=== PATIENT | female | born 1970 | race Caucasian/White ===

== ENCOUNTER 2018-10-15 13:49 | Outpatient (CLI) | payer BC, SELFPAY ==
--- NOTE | 2018-10-15 13:30 | DI.RAD_ITS ---
SYMPTOM/DIAGNOSIS: INJURY LEFT THUMB: Three views were obtained. No fracture is seen.
== END 2018-10-15 14:09 ==
PROVIDERS: PCP Student in an Organized Health Care Education/Training Program; Visit Provider Student in an Organized Health Care Education/Training Program
DX: S69.92XA Unspecified injury of left wrist, hand and finger(s), initial encounter (principal); M79.645 Pain in left finger(s)
CPT/HCPCS: 73140

== ENCOUNTER 2019-02-06 10:56 | Outpatient (CLI) | payer BC, SELFPAY ==
[2019-02-06 13:18] LABS: Calculated LDL 91 mg/dL; Cholesterol 189 mg/dL (50-200); HDL Cholesterol 87 mg/dL (40-60); Triglyceride 55 mg/dL (30-150)
[2019-02-06 13:33] LABS: Hemoglobin A1C 5.2 % (4.5-6.2)
== END 2019-02-06 11:16 ==
PROVIDERS: PCP Nurse Practitioner; Visit Provider Nurse Practitioner
DX: Z13.1 Encounter for screening for diabetes mellitus (principal); Z13.6 Encounter for screening for cardiovascular disorders
CPT/HCPCS: 36415; 80061; 83036

== ENCOUNTER 2019-04-24 00:34 | Outpatient (CLI) | payer BC, SELFPAY ==
--- NOTE | 2019-04-24 14:17 | DI.US_ITS ---
EXAM: US PELVIS AND TRANSVAGINAL CLINICAL HISTORY: OVARIAN PAIN/CYSTS/HERNIA R10.9 ABDOMINAL PAIN, R52 PAIN. TECHNIQUE: Ultrasound of the pelvic, both abdmonal and tranvaginal was performed using standard prot ocol. COMPARISON: No exams were available for comparison FINDINGS: KIDNEYS: Kidneys are symmetric in size. No evidence of renal calculi. No evidence of hydronephrosis. No renal mass or cyst identified. UTERUS: Position: Anteverted. Size: 8.2 x 4.0 x 4.4 cm Endometrium: 0.5 cm. Normal for patient's menstrual status. Myometrium: Unremarkable. Cervix: Cervical nabothian cysts. OVARIES: Right: 4.1 x 3.1 x 3.2 cm Cyst or mass: There is a 2.9 x 2.1 x 2.2 cm simple cyst. There is a 3 x 1.2 x 2.7 cm well-circumscri bed lesion. There is no internal vascularity. There is a 2nd lesion measuring 1.2 x 0.6 x 1.1 cm. It is well-circumscribed and hypoechoic. Left: 2.2 x 0.9 x 1.4 cm. This was only visualized transabdominally. Cyst or mass: None. CUL-DE-SAC: Free fluid: None. IMPRESSION: 1. Normal sonographic appearance of the kidneys. 2. Normal-appearing uterus with endometrial stripe within normal limits. 3. Two hypoechoic lesions seen on the right ovary as described above. These may represent hemorrhagi c cysts. A follow-up pelvic ultrasound in 6 to 8 weeks is recommended for re-evaluation.
--- NOTE | 2019-04-24 14:26 | DI.US_ITS ---
EXAM: US HERNIA CLINICAL HISTORY: OVARIAN PAIN/ CYSTS/HERNIA R10.9 ABDOMINAL PAIN TECHNIQUE: Ultrasound performed using standard protocol. COMPARISON: No previous for comparison. FINDINGS: Right lower quadrant was evaluated sonographically. No sonographic evidence of an abdominal wall her maurilio is noted. IMPRESSION: No sonographic evidence of a hernia.
[2019-04-26 12:54] LABS: IgA 182 mg/dL (85-499); Tissue Transglutaminase IgA <1.2 U/mL (<4.0)
== END 2019-04-24 00:54 ==
PROVIDERS: PCP Nurse Practitioner; Visit Provider Nurse Practitioner
DX: R10.9 Unspecified abdominal pain (principal); N94.89 Other specified conditions associated with female genital organs and menstrual cycle; N83.291 Other ovarian cyst, right side
CPT/HCPCS: 36415; 76857; 82784; 83516; 76830; 76856

== ENCOUNTER 2019-06-05 01:37 | Outpatient (CLI) | payer BC, SELFPAY ==
--- NOTE | 2019-06-05 12:45 | DI.US_ITS ---
EXAM: US PELVIS AND TRANSVAGINAL CLINICAL HISTORY: ABDOMINAL PAIN, FOLLOW UP TO PREVIOUS ULTRASOUND, R10.9 TECHNIQUE: Ultrasound performed using standard protocol. Transabdominal and transvaginal studies w ere performed. COMPARISON: US PELVIS TRANSVAGINAL from 04/24/2019 US HERNIA from 04/24/2019 FINDINGS: The uterus measures 7.3 x 3.8 x 5.0 cm. Endometrial stripe measures 5 millimeters in thickness. The left ovary was not able to be visualized on the current exam. The right ovary shows a 2.4 at 2.2 x 1 .4 centimeter cyst with low-level echoes. The previous exam showed 3 lesions. Findings could represen t a new cyst, could represent partial involution of 1 of the 2 larger cysts seen on the previous exam . There are no suspicious features. The bladder and kidneys are unremarkable. IMPRESSION: 2.4 centimeter cyst with low-level echoes on the right ovary. Two of the previously noted lesions camarena ve since resolved. No suspicious features. DATA REPOSITORY:
== END 2019-06-05 01:57 ==
PROVIDERS: PCP Nurse Practitioner; Visit Provider Nurse Practitioner
DX: R10.9 Unspecified abdominal pain (principal); N83.291 Other ovarian cyst, right side
CPT/HCPCS: 76830; 76856

== ENCOUNTER 2020-09-14 02:35 | Outpatient (CLI) | payer BC, SELFPAY ==
--- NOTE | 2020-09-14 | DI.US_ITS ---
Exam(s) US BREAST LT COMPLETE US BREAST RT COMPLETE MG MAMMO SCREENING EXAM: MG MAMMO SCREENING and bilateral U/S breast complete CLINICAL HISTORY: SCREENING,. TECHNIQUE: Craniocaudal and mediolateral oblique Full Field Digital Mammography views with Computer Aided Diagnosis followed by Tomosynthesis and bilateral breast ultrasound. COMPARISON: Comparison with prior examinations FINDINGS: Mammography/Tomosynthesis: Masses/Architectural Distortion: None seen. Microcalcifictions: No suspicious pleomorphic-type are seen. Skin Thickening/Nipple Retraction: None. Bilateral breast US: Echotexture: Normal appearance of the glandular tissue. Shadowing: No suspicious foci. Cyst: None. Solid lesions: None seen. Ductal dilation: None. Bilateral axilla: Unremarkable. IMPRESSION: 1. No evidence of malignancy is noted. 2. Unless there is more urgent need, follow-up screening mammography is recommended, as per [employer] guidelines. 3. The findings were discussed with the patient on the date of the examination. BI-RADS Category 1 - Negative Breast Density - Category B - Scattered areas of fibroglandular density Breast density Category C or D implies that the patient has dense breast tissue. Dense breast tissue can make it harder to find cancer on a mammogram. Dense breast tissue is also associated with an incr eased risk of breast cancer. This information about the result of the mammogram report was provided to the patient to raise their awareness. Use this report when you speak with the patient about their risks for breast cancer, which includes their family history. At that time, you may recommend additional screening tests (Ultrasoun d or MRI) as these tests may add significant information. A negative radiographic report should not delay biopsy if a dominant or clinically suspicious mass is present. Up to ten percent of cancers are not identified on mammography. A negative report may reinforce clinical impression. Adenosis and dense breasts may obscure an underlying neoplasm. False positive reports average 6 to 10%. Patient will receive a letter notifying them of these results.
== END 2020-09-14 02:55 ==
PROVIDERS: PCP Nurse Practitioner; Visit Provider Obstetrics & Gynecology Gynecology
DX: Z12.31 Encounter for screening mammogram for malignant neoplasm of breast (principal)
CPT/HCPCS: 76642; 77063; 77067

== ENCOUNTER 2021-03-01 02:47 | Outpatient (CLI) | payer BC, SELFPAY ==
[2021-03-01 13:38] LABS: Source Nasal/Nares
[2021-03-01 17:39] LABS: COVID-19 PCR Negative (Negative)
== END 2021-03-01 02:48 | disposition home or self-care (01) ==
LOC: LBO 02:47
PROVIDERS: PCP Family Medicine; Visit Provider Surgery
DX: Z20.822 Contact with and (suspected) exposure to COVID-19 (principal)
CPT/HCPCS: 87635

== ENCOUNTER 2021-03-03 08:55 | Day surgery (SDC) | payer BC, SELFPAY ==
--- NOTE | 2021-03-03 06:55 | W.COLOREPORT ---
Colonoscopy Report Date of procedure: 03/03/21 Pre-op diagnosis general: Colon Cancer Screening Post-op diagnosis procedure note: same Procedure: Colonoscopy Surgeon: Margret Villagran Anesthesia Type: General:No Airway (Mike Holm CRNA) Estimated blood loss (mL): 0 Pathology: none sent Complications: None Disposition: same day Indications: The patient is here for Colonoscopy pre-op. She has no family history of colon cancer. She has not had any bowel habit changes. -Discussed colonoscopy bowel prep as well as the procedure. Discussed possible complications of the procedure to include bleeding, pain, perforation, missed small lesion/polyp, sore throat, aspiration and adverse reaction to the medications. Questions were answered to patient?s satisfaction. No guarantees were implied or given. Patient education provided on H Pylori. She does admit or describe having any symptoms that would suggest H Pylori infection. Recommend she follows up with her PCP regarding less invasive forms of testing such as the stool test or urea breath test. She was encouraged to hold her herbal supplements prior to her procedure. Prep: Miralax/Dulcolax Procedure Start Time: 09:59 Procedure End Time: 10:14 Retraction Time: 7 minutes Findings: normal colonoscopy Procedure Description: After informed consent was obtained the patient was taken to the procedure room and placed in a left decubitous position. Monitors were applied and a time out was done. The patients name, date of , procedure, allergies to medications and metal in their body was reviewed. The patient was then sedated. Once sedated and comfortable a rectal exam was done. External exam was normal. Internal exam revealed a normal sphincter tone and no palpable masses. The scope was then introduced and retro-flexed. No internal hemorrhoids, polyps or masses were identified on retro-flexion. The scope was then advanced to the cecum without difficulty. The ileocecal vlave and appendiceal orifice were identified. The prep was adequate. The scope was then slowly retracted over 7 minutes back into the rectum. There were no polyps and no diverticulosis noted. The scope was removed and the patient was woken up and taken back to Same day surgery in stable condition. The patient tolerated the procedure well and there were no immediate complications. Follow up: The patient should follow up in 10 years unless they develop changes in bowel habits or other new gastrointestinal complaints.
--- NOTE | 2021-03-03 06:55 | W.PM.DSUDISC ---
Discharge Plan Disposition Patient Disposition: HOME Condition: Good Discharge Details Reason For Visit: Screening Attending Provider: Margret Villagran Primary Care Provider: Maria Elena Murrieta Home Meds and New Rx's Prescriptions: Continued Galzin 25 mg (zinc) capsule 25 mg PO DAILY RF: 0 ascorbic acid (vitamin C) 500 mg capsule 500 mg PO QDAY RF: 0 zasypen-oxrv-odapy-oreg-capryl 100 mg-150 mg- 50 mg-150 mg capsule 1 cap PO DAILY RF: 0 Discontinued polyethylene glycol 3350 17 gram/dose powder 238 g PO ONCE Qty: 238 RF: 0 bisacodyl [Dulcolax (bisacodyl)] 5 mg tablet,delayed release (DR/EC) 5 mg PO ONCE Qty: 4 RF: 0 Discharge Instructions Additional Instructions: Findings: Normal colonoscopy Follow up: 10 years Please call if you develop: fevers >101.5 Nausea or Vomiting Abdominal pain that is not transient Rectal bleeding that is more then a tbsp A hard abdomen and inability to pass gas DAY SURGERY UNIT POST ENDOSCOPY INSTRUCTIONS Instructions for everyone who is given Anesthesia: For your safety, please do the following for the next 24 Hours: a. Do not drive or operate dangerous equipment b. Do not drink alcohol beverages or use any recreational drugs for the first 24 hours or while taking pain medications. The medications in your body may have a reaction that can be dangerous. c. Do not make any important decisions or sign any important papers 1. Generally there are no restrictions on your activity after a day or so has gone by, but you may feel a bit fatigued for a few days. 2. After you arrive home you may have a light meal and return to a normal diet as you can tolerate it without feeling sick to your stomach. 3. After surgery, you may feel pain or discomfort. This should be only transient, but if it persists please contact your doctor. 4. If there are any questions regarding the findings of your procedure, please feel free to contact your doctor. 6. If you are unable to contact your doctor with a problem, contact the hospital at [phone]. 7. Continue all your regular medications unless directed otherwise. I understand the above instructions and have no questions. Signature of Patient or Responsible Adult Escort Date/Time Name of Responsible Adult Escort Signature of Nurse Date/Time Activity:: Activity as Tolerated Diet:: As Tolerated Discharge Orders Discharge Orders: Discharge Order (Routine); Ordered 03/03/21 Ordered By: Margret Villagran
[2021-03-03 09:29] VITALS: BP 154/102; PULSE 83; RESP 16; TEMP 36.3; O2SAT 99
--- NOTE | 2021-03-03 09:33 | W.ANESPRE ---
General Info Date of Service Date Performed: 03/03/21 Height: 5 ft 5 in Weight: 72.575 kg Body Mass Index (BMI): 26.6 Surgical Procedure: Operation Date: 03/03/21 09:20 Proposed Procedures Side Surgeon p Colonoscopy Margret Villagran MD Meds Allergies and Home Medications Allergies Allergy/AdvReac Type Severity Reaction Status Date / Time No Known Allergies Allergy Verified 03/01/21 14:58 Home Medication Medication Instructions Recorded ascorbic acid (vitamin C) 500 mg 500 mg PO QDAY cap 02/26/21 capsule bisacodyl 5 mg tablet,delayed 5 mg PO ONCE #4 tab 02/26/21 release polyethylene glycol 3350 17 238 g PO ONCE #238 g 02/26/21 gram/dose oral powder tumeric 100 mg-iain 150 mg-olive 1 cap PO DAILY cap 02/26/21 50 mg-oreg 150 mg-caprylate capsule zinc acetate 25 mg (zinc) capsule 25 mg PO DAILY 02/26/21 Current Visit Medications: Current Medications Generic Name Dose Route Start Last Admin Trade Name Freq PRN Reason Stop Dose Admin Hyoscyamine Sulfate 0.125 mg 03/03/21 06:56 Hyoscyamine 0.125 Mg Sl/Oral/Chew SL DIRECTED PRN Ringer's Solution 1,000 mls @ 80 mls/hr 03/03/21 06:00 IV 04/01/21 23:59 [facility] IV Miscellaneous Supplies 1 each 03/03/21 06:00 Iv Access IV 04/01/21 23:59 DIRECTED FLAQUITA Ondansetron HCl 4 mg 03/03/21 06:56 Ondansetron 4 Mg/2 Ml Vial IVP Q4H PRN PRN Nausea / Vomiting Sodium Chloride 0 ml 03/03/21 06:00 Normal Saline Flush 10 Ml Syr IV 04/01/21 23:59 PRN PRN Sodium Chloride 0 ml 03/03/21 06:00 Normal Saline 10 Ml Vial IJ 04/01/21 23:59 DIRECTED PRN Sterile Water 0 ml 03/03/21 06:00 Water,Injection,Sterile 10 Ml Vial IJ 04/01/21 23:59 DIRECTED PRN PFSH Active Problems Active Problems: Problem Status Onset Code Anxiety F41.9 Low back pain ~2019 M54.5 Symptomatic menopausal or female climacteric states N95.1 Medical History Active Problem List Anxiety (Chronic) Low back pain (Acute ~2019) Symptomatic menopausal or female climacteric states (Acute) Medical History Hepatitis A infection 1993 Herpes simplex oral herpes; improved with zinc supplement Ovarian cyst in 2012; had surgery - laparoscopic surgery, benign pathology Surgical History Surgical History (Updated 03/03/21 @ 09:27 by Seema Chase) History of endometrial ablation successful; menopause status now. History of selective injection of anesthetic agent around lumbar nerve root pt. reports lower back injections x3 Tobacco Smoking/Tobacco Use Status: Never Passive smoking exposure: No Alcohol Alcohol Intake: current Alcohol intake frequency: 0-2 drinks per day Alcohol type: wine Substance Use Substance use: Daily Substance use type: marijuana Vital Signs and Lab Results Lab Results Blood Type / Crossmatch: No Data to Display Complete Blood Count: No Data to Display Complete Metabolic Panel: No Data to Display Liver Function Panel: No Data to Display Coagulation Panel: No Data to Display Cardiac Panel: No Data to Display Arterial Blood Gas: No Data to Display Venous Blood Gas: No Data to Display Pancreas Panel: No Data to Display Thyroid Panel: No Data to Display Infectious Disease: Coronavirus (COVID-19)(PCR) Negative (Negative) 03/01/21 11:26 03/01/21 Coronavirus 2019 Source Nasal/Nares 03/01/21 11:26 03/01/21 Blood Cultures: No Data to Display Toxicology Panel: No Data to Display Panel: No Data to Display Anesthesia Assessment and Plan Anesthesia History Personal History: No History of Anesthesia Complications Family History: No Family History of Anesthesia Complications Exercise Tolerance Exercise Tolerance: Metabolic Equivalents>4 Pertinent Negatives Pertinent Negatives: No Symptoms of GERD, No Major Cardiovascular Symptoms or Complaints, No Major Pulmonary Symptoms or Complaints and No History of CVA/TIA Cardiac & Pulmonary Exam Cardiac Exam: Normal S1/S2 Heart Sounds Pulmonary Exam: Clear Bilateral Breath Sounds Implantable Cardiac Device Does patient have a Pacemaker or an ICD?: No Airway Exam Known Difficult Airway: No Mallampati Class: 1 Mouth Opening: Normal (> 3cm) Thyromental Distance: Greater than 3 cm Neck Range of Motion: Full ROM Neck Circumference: Normal Teeth Condition: Normal Dentition ASA Classification ASA Score: ASA 2 Emergency Case?: No NPO Status NPO Status: NPO Clears >2 hours, Solids >8 hours Status Status: Not Relevant due to Medical History Anesthesia Plan Resuscitation Status: Full Code Anesthesia Technique: General Anesthesia Airway Planned: Natural Airway Monitors Used: Standard Monitors
[2021-03-03 09:36] VITALS: BMI 26.6
[2021-03-03] MEDS: Lactated Ringers 1,000 ML 80 ML IV (09:45)
[2021-03-03 10:30] VITALS: BP 123/84; PULSE 75; RESP 16; TEMP 36.2; O2SAT 95
--- NOTE | 2021-03-03 10:32 | W.ANESPOSTOP ---
Postoperative Evaluation Date, Time and Location Date Performed: 03/03/21 Time Performed: 10:32 Patient Location: Day Surgery Unit Vital Signs Most Recent Imported Vital Signs: Most Recent Vital Signs Temp Pulse Resp BP Pulse Ox 36.3 C L 83 16 154/102 H 99 03/03/21 09:29 03/03/21 09:29 03/03/21 09:29 03/03/21 09:29 03/03/21 09:29 Most Recent Manually Entered Vital Signs: Adult Blood Pressure: 123/84 Heart Rate: 70 Respirations: 10 Oxygen Saturation (%): 99 Temperature (C): 36.2 C Pain Score (0-10 Scale): 0 Pain Score Most Recent Pain Score: Most Recent Pain Score Pain Level 0 03/03/21 09:29 Assessment Mental Status: Awake (Alert & Oriented to Patient Baseline) Airway and Respiratory Function: Patent airway with normal (patient baseline) respiratory exam Cardiovascular Function: Hemodynamically Stable Hydration Status: Adequately Hydrated Nausea & Vomiting: No Nausea or Vomiting Pain: Pt. Denies Any Pain Peripheral Nerve Block: Patient did not receive a nerve block
[2021-03-03 10:33] VITALS: BP 123/84; PULSE 70; RESP 10; TEMPC 36.2; O2SAT 99
[2021-03-03 10:55] VITALS: BP 128/93; PULSE 64; RESP 16; TEMP 36.4; O2SAT 100
== END 2021-03-03 11:48 | disposition home or self-care (01) ==
LOC: SUR 08:55
PROVIDERS: PCP Family Medicine; Visit Provider Surgery
PROC: 0DJD8ZZ Inspection of Lower Intestinal Tract, Via Natural or Artificial Opening Endoscopic (ICD-10-PCS; CPT 45378; principal; 2021-03-03 09:15)
DX: Z12.11 Encounter for screening for malignant neoplasm of colon (principal)
CPT/HCPCS: 45378; J2250

== ENCOUNTER 2022-03-01 10:09 | Outpatient (CLI) | payer BC, SELFPAY ==
[2022-03-02 09:49] LABS: HIV-1/2 Ag & Ab Screen Negative (Negative)
[2022-03-02 10:08] LABS: Hepatitis C Ab w Rflx HCV PCR Negative (Negative)
== END 2022-03-01 10:10 | disposition home or self-care (01) ==
LOC: LOS 10:10
PROVIDERS: PCP Family Medicine; Referring Provider Family Medicine; Visit Provider Family Medicine
DX: Z11.4 Encounter for screening for human immunodeficiency virus [HIV] (principal); Z00.00 Encounter for general adult medical examination without abnormal findings; Z11.59 Encounter for screening for other viral diseases
CPT/HCPCS: 36415; 86803; 87389

== ENCOUNTER 2022-03-01 12:48 | Outpatient (REF) | payer BC, SELFPAY ==
--- NOTE | 2022-03-01 09:50 | PAPFT_PTH ---
PATIENT: Anitha Garcia LOC: [facility] U#:[id number] AGE/SX: 51/F ROOM: RE03/01/[address]: Maria Elena Murrieta : 1970 BED: DIS: 03/01/2022 SPEC #: [id number] RECD: 03/01/22 13:02 STATUS: DONG REXu #: [id number] LINNETTE: 03/01/22 09:[address]: Maria Elena Murrieta DEPT: [facility] Cytology RECD BY: Pam Garner Tissues: 1 - CX/ENDOCX FOR PAP SMEARS Procedures: PAP THIN PREP/UVM Screening HPV DNA PROBE Comments: [id number]
== END 2022-03-01 12:49 | disposition home or self-care (01) ==
LOC: LBN 12:48
PROVIDERS: PCP Family Medicine; Visit Provider Family Medicine
DX: Z12.4 Encounter for screening for malignant neoplasm of cervix (principal); Z11.51 Encounter for screening for human papillomavirus (HPV)
CPT/HCPCS: 88142; 87624

== ENCOUNTER 2022-03-31 18:29 | Outpatient (REF) | payer BC, SELFPAY ==
[2022-03-31 21:54] LABS: Bilirubin Negative (Negative); Blood Small (Negative); Clarity Clear (Clear); Glucose Negative (Negative); Ketones Negative (Negative); Leukocyte Esterase Negative (Negative); Nitrite Negative (Negative); Urobilinogen 0.2 EU/dL (Up TO 0.2)
[2022-03-31 22:47] LABS: Bacteria Negative HPF (Negative); C & S Indicated? No; Crystals Negative HPF (Negative); Epithelial Cells Rare HPF (Negative); Mucus Trace (Negative); RBC 0-2 HPF (0-2); WBC Negative HPF (0-5)
== END 2022-03-31 18:30 | disposition home or self-care (01) ==
LOC: LBN 18:29
PROVIDERS: PCP Family Medicine; Visit Provider Physician Assistant Medical
DX: R39.9 Unspecified symptoms and signs involving the genitourinary system (principal)
CPT/HCPCS: 81003; 81015

== ENCOUNTER 2023-09-13 12:53 | Outpatient (CLI) | payer BC, SELFPAY ==
[2023-09-13 13:25] LABS: ALT 25 U/L (14-59); AST 13 U/L (15-37); Albumin 3.7 g/dL (3.4-5.0); Alkaline Phosphatase 59 U/L (46-116); Anion Gap 8.4 mmol/L (3-11); BUN 16 mg/dL (7-18); Bilirubin, Total 0.6 mg/dL (0.2-1.0); CO2 28.6 mmol/L (21.0-32.0); CREATININE 0.7 mg/dL (0.55-1.02); Calculated LDL 95 mg/dL (<100); Chloride 106 mmol/L (98-107); Cholesterol 209 mg/dL (<200); Estimated GFR 103.35 (mL/min/1.73m2); Glucose 120 mg/dL (74-106); HDL Cholesterol 93 mg/dL (40-60); Potassium 3.7 mmol/L (3.5-5.1); Sodium 143 mmol/L (136-145); Total Protein 7.2 g/dL (6.4-8.2); Triglyceride 106 mg/dL (<150)
== END 2023-09-13 12:54 | disposition home or self-care (01) ==
LOC: LBO 12:54
PROVIDERS: PCP Family Medicine; Visit Provider Family Medicine
DX: Z00.00 Encounter for general adult medical examination without abnormal findings (principal); Z13.220 Encounter for screening for lipoid disorders
CPT/HCPCS: 36415; 80053; 80061

== ENCOUNTER 2024-07-03 02:25 | Outpatient (CLI) | payer BC, SELFPAY ==
[2024-07-03 12:24] LABS: Abs Immature Grans 0.02 10^3/uL (0.0-0.06); Absolute Basophil Count 0.04 10^3/uL (0.0-0.2); Absolute Eosinophil Count 0.13 10^3/uL (0.0-0.7); Absolute Lymphocyte Count 1.45 10^3/uL (1.2-3.4); Absolute Monocyte Count 0.43 10^3/uL (0.1-0.8); Absolute Neutrophil Count 2.46 10^3/uL (1.2-6.7); Basophils % 0.9 %; Eosinophils % 2.9 %; HCT 45.6 % (36.0-46.0); HGB 14.8 g/dL (11.2-15.7); Immature Grans % 0.4 %; MCH 30.1 pg (27.0-33.0); MCHC 32.5 % (32.0-36.0); MCV 93 fL (80-95); MPV 10.3 fL (8.0-11.0); Monocytes % 9.5 %; Neutrophils % 54.3 %; Platelet Count 267 10^3/uL (130-400); RBC 4.91 10^6/uL (3.93-5.22); WBC 4.53 10^3/uL (4.4-10.8)
[2024-07-03 13:02] LABS: Vitamin B12 395 pg/mL (193-986); Vitamin D 25 Total 39 ng/mL (30-100)
[2024-07-03 13:03] LABS: Folate > 20.0 ng/mL (8.6-20.0)
[2024-07-03 17:48] LABS: CRP, High Sensitivity 1.62 mg/L (See Note)
== END 2024-07-03 02:26 | disposition home or self-care (01) ==
LOC: LOS 02:25
PROVIDERS: PCP Family Medicine; Visit Provider Naturopath
DX: R53.83 Other fatigue (principal)
CPT/HCPCS: 36415; 82306; 86141; 82607; 82746; 83655; 85025

== ENCOUNTER 2024-08-07 12:27 | Outpatient (CLI) | payer BC, SELFPAY ==
[2024-08-07 14:15] LABS: FREE T4 0.95 ng/dL (0.76-1.46); TSH 1.04 uIU/mL (0.36-3.74)
[2024-08-07 14:38] LABS: T4 6.7 ug/dL (4.7-13.3)
[2024-08-07 22:09] LABS: T3, Total 122 ng/dL (97-169)
[2024-08-07 23:08] LABS: Thyroglobulin Antibody <15 U/mL (<=60); Thyroperoxidase Antibody 40 U/mL (<=60)
== END 2024-08-07 12:28 | disposition home or self-care (01) ==
LOC: LBO 12:27
PROVIDERS: PCP Family Medicine; Visit Provider Naturopath
DX: R53.83 Other fatigue (principal); F41.9 Anxiety disorder, unspecified
CPT/HCPCS: 36415; 84436; 84439; 84443; 84480; 86376; 86800